=== PATIENT | male | born 1940 | race Caucasian/White ===

== ENCOUNTER 2020-12-30 19:01 | Inpatient (IN) | payer MEDICARE ==
[~2020-12-30] VITALS: Ht 177.8 cm; Wt 77.1 kg
[~2020-12-30 19:01] MED LIST: LEVAQUIN 500 M500 M2 PO; METFORMIN HCL500 MG PO; MUCINEX TA600 MG/TA2 PO; PREDNISONE 10 M10 M1 PO; TAMIFLU75 MG PO; ZOCOR20 MG PO
[2020-12-30 19:08] VITALS: BP 126/66
[2020-12-30 20:53] LABS: HEMATOCRIT 41.4 % (42.0-52.0); HEMOGLOBIN 14.1 gm/dL (14.0-18.0); MCHC 34.1 g/dL (28.0-37.0); MCV 93.9 fL (80.0-100.0); MPV 8.7 fl. (7.2-11.1); NUCLEATED RBCS 0 /100WBC; PLATELET COUNT* 122 thou/uL (150-400); RBC 4.41 mil/uL (4.50-6.00); RDW-CV 13.4 % (10.5-14.5); WBC 2.7 thou/uL (4.0-11.0)
[2020-12-30 21:11] LABS: MAGNESIUM 1.9 mg/dL (1.8-2.4)
[2020-12-30 21:19] LABS: CALCIUM 8.5 mg/dL (8.5-10.1); CREATININE 0.9 mg/dL (0.6-1.3); POTASSIUM 3.9 mmol/L (3.5-5.1)
[2020-12-30 21:24] LABS: ALBUMIN 3.9 g/dL (3.4-5.0); TOTAL BILIRUBIN 0.3 mg/dL (<0.1-1.0); TOTAL PROTEIN 7.9 g/dL (6.4-8.2)
[2020-12-30 21:28] LABS: ABSOLUTE MONOCYTES 0.4 thou/uL (0.0-1.2); ABSOLUTE NEUTROPHILS 1.2 thou/uL (1.6-8.1); LARGE PLATELETS OCCASIONAL; PLATELET ESTIMATE DECREASED
[2020-12-30 23:06] VITALS: BP 120/67
[2020-12-31 03:00] VITALS: BP 116/67
[2020-12-31 08:00] VITALS: BP 123/85
[2020-12-31] MEDS ORDERED: OMEPRAZOLE 20 M20 M1 PO (08:27)
--- NOTE | 2020-12-31 10:48 | EKG ---
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
[2020-12-31 12:00] VITALS: BP 137/70
[2020-12-31 16:00] VITALS: BP 130/70
[2020-12-31 20:24] VITALS: BP 171/87
[2021-01-01 00:10] VITALS: BP 114/88
--- NOTE | 2021-01-01 00:20 | NUR ---
PT WITHOUT NASAL CANNULA ON WHEN NURSE ENTERED ROOM. O2 SATS 95% AND HIGHER. PT DOES REPORT INCREASED COUGHING. TREATMENT PROVIDED. PT ALSO STATES HE IS FEELING HUNGRY, BOXED LUNCH, SPRITE AND FRESH WATER PROVIDED. PT ALSO VOICING BACK PAIN, DR BULMARO HERR, AWAITING CALL FOR ORDERS.
[2021-01-01 04:20] VITALS: BP 112/62
[2021-01-01 08:36] LABS: CALCIUM 7.8 mg/dL (8.5-10.1); CREATININE 0.9 mg/dL (0.6-1.3); POTASSIUM 3.5 mmol/L (3.5-5.1)
[2021-01-01 12:00] VITALS: BP 132/56
[2021-01-01 13:39] LABS: CALCIUM 7.9 mg/dL (8.5-10.1); CREATININE 0.8 mg/dL (0.6-1.3); POTASSIUM 3.5 mmol/L (3.5-5.1)
[2021-01-01 13:42] LABS: MAGNESIUM 2.1 mg/dL (1.8-2.4); PHOSPHORUS* 2.4 mg/dL (2.5-4.9)
[2021-01-01 16:00] VITALS: BP 110/64
[2021-01-01 20:24] VITALS: BP 121/61
[2021-01-02 00:44] VITALS: BP 97/61
[2021-01-02 04:23] VITALS: BP 124/69
[2021-01-02 07:10] VITALS: BP 128/66
[2021-01-02 09:17] LABS: CALCIUM 8.1 mg/dL (8.5-10.1); CREATININE 0.9 mg/dL (0.6-1.3); POTASSIUM 3.3 mmol/L (3.5-5.1)
[2021-01-02 11:25] VITALS: BP 127/73
--- NOTE | 2021-01-02 15:59 | NUR ---
Anticipate dc in 1-2 days. Covid positive, fully vaccinated.
[2021-01-02 16:00] VITALS: BP 122/63
--- NOTE | 2021-01-02 16:02 | NUR ---
CM spoke with Pt's via phone. Pt is independent and active. No DME. No hx of HH or SNF>
--- NOTE | 2021-01-02 17:12 | NUR ---
PT REMAINED ALERT AND ORIENTED. PT UP MOVING IN ROOM. O2 2 L PRN. DIET ADVANCED. FAMILY UPDATED. HEART MONITORED. HOURLY ROUNDING COMPLETED. CALL LIGHT WITHIN REACH.
[2021-01-02 20:00] VITALS: BP 114/64
[2021-01-03] VITALS: BP 132/66
[2021-01-03 04:00] VITALS: BP 125/71
--- NOTE | 2021-01-03 05:53 | NUR ---
Pt. alert and oriented X4. Denies pain, Afebrile. Up with standby assist. Pt. NSR on tele monitor. Pt. on 2L NC and maintaining adequate oxygenation. Pt. voiding approprately. BS ACHS with sliding scale as ordered. Plan is to discharge today. All questions and concerns addressed appropraItely. Fall precautions in place, call light within reach. Will continue to monitor.
[2021-01-03 08:30] VITALS: BP 156/83
[2021-01-03] MEDS ORDERED: CHLORASEPTIC LOZENGE PO (08:38)
[2021-01-03] MEDS ORDERED: VITAMINC500 PO (08:38)
[2021-01-03] MEDS ORDERED: VENTOLIN HFA 1818 GM INH (08:38)
[2021-01-03] MEDS ORDERED: TESSALON PERLE100 MG PO (08:38)
[2021-01-03] MEDS ORDERED: VITAMIN D325 MC2 PO (08:38)
[2021-01-03] MEDS ORDERED: PRENATAL PO (08:38)
[2021-01-03] MEDS ORDERED: DEXAMETHASONE6 MG PO (08:38)
[2021-01-03 12:00] VITALS: BP 126/69
--- NOTE | 2021-01-03 15:11 | NUR ---
Pt discharging to home, does not need home o2.
[2021-01-03 15:54] VITALS: BP 126/69
[2021-01-03 16:00] VITALS: BP 125/65
--- NOTE | 2021-01-03 17:19 | NUR ---
I ASSUMED CARE OF THE PATIENT AT 0700. BED IS IN THE LOW LOCKED POSITION AND CALL LIGHT IS IN REACH. HOURLY ROUNDING IS COMPLETED AND PATIENT NEEDS ARE MET. PAIN IS DENIED. ISOLATION IS MAINTAINED. BLOOD GLUCOSE IS MONITORED. HE IS AD MARIE. REST AND EXERCISE WAS COMPLETED AND PATIENT DOES NOT REQUIRE OXYGEN TO GO HOME. PATIENT WAS DISCHARGED TO HOME AT 1700 AND SCRIPTS WERE CALLED IN. WILL CONTINUE TO MONITOR.
== END 2021-01-03 17:27 | disposition home or self-care (01) | DRG 177 ==
LOC: M.ERS 19:01 → M.TBA-ER 22:42 → M.ORTHSURG 12-31 09:55 → M.TBA-ER 12-31 09:55 → M.ORTHSURG 01-01 11:24
PROVIDERS: Nurse Practitioner Psychiatric/Mental Health; ADMIT Internal Medicine; ATTEND Internal Medicine
PROC: XW033E5 Introduction of Remdesivir Anti-infective into Peripheral Vein, Percutaneous Approach, New Technology Group 5 (ICD-10-PCS; principal; 2020-12-31)
DX: U07.1 COVID-19 (principal); J12.82 Pneumonia due to coronavirus disease 2019; J96.01 Acute respiratory failure with hypoxia; D61.818 Other pancytopenia; E11.9 Type 2 diabetes mellitus without complications; E78.00 Pure hypercholesterolemia, unspecified; Z87.891 Personal history of nicotine dependence; Z83.3 Family history of diabetes mellitus